=== PATIENT | female | born 1965 | race Caucasian/White ===

== ENCOUNTER → 2020-12-30 10:48 | Outpatient (CLI) | payer MEDICARE, MEDICAID | END | disposition home or self-care (01) | LOC: D.MRI 10:30 | PROVIDERS: ATTEND Nurse Practitioner Family | DX: M79.604 Pain in right leg (principal) ==

== ENCOUNTER 2021-01-19 11:03 | Emergency (ER) | payer MEDICARE, MEDICAID ==
[~2021-01-19] VITALS: Ht 162.6 cm; Wt 90.9 kg
[2021-01-19 11:07] VITALS: Ht 162.6 cm; Wt 90.9 kg
[2021-01-19] MEDS ORDERED: HYDROCODONE-AC1 EAC2 PO (12:32)
[2021-01-19 13:06] VITALS: BP 127/63
== END 2021-01-19 12:57 | disposition home or self-care (01) ==
LOC: D.ER 11:03
DX: M84.361A Stress fracture, right tibia, initial encounter for fracture (principal); I10 Essential (primary) hypertension

== ENCOUNTER → 2021-01-22 16:12 | Outpatient (CLI) | payer MEDICARE, MEDICAID ==
[2021-01-19 11:07] VITALS: BMI 34.4
[~2021-01-22 16:12] MED LIST: HYDROCODONE-AC1 EAC2 PO
== END | disposition home or self-care (01) ==
LOC: D.MRI 16:00
PROVIDERS: ATTEND Nurse Practitioner Family
DX: R93.89 Abnormal findings on diagnostic imaging of other specified body structures (principal)